=== PATIENT | female | born 1940 | race Caucasian/White ===

== ENCOUNTER 2017-12-31 15:09 | Emergency (ER) | payer MEDICARE, BC ==
[2017-12-31 16:00] VITALS: BP 138/68
--- NOTE | 2017-12-31 16:30 | UC ---
Cardiac HPI - HPI Summary HPI Summary: Pt c/o right chest/rib pain along bra line under right breast. Pt denies injury or trauma to area. Denies skin rash, pain is intermittent and worsens with deep breaths, coughing and laughing. Pt has history of colon cancer - History of Current Complaint Hx Obtained From: Patient Hx Last Menstrual Period: N/A Onset/Duration: Sudden Onset, Lasting Days, Still Present Timing: Intermittent Episodes Lasting: Initial Severity: Mild Current Severity: None Pain Intensity: 0 Chest Pain Location: Right Anterior Aggravating Factor(s): Deep Breaths Alleviating Factor(s): Rest, Position, Spontaneous Resolution Associated Signs & Symptoms: Positive: Negative - Risk Factors Pulmonary Embolism Risk Factors: Malignancy - history of colon cancer Cardiac Risk Factors: Negative Atrial Fibrillation: Negative TAD Risk Factors: Negative <Steph Samson NP - Last Filed: 12/31/17 16:35> <Katrin Salgado - Last Filed: 12/31/17 16:44> - History of Current Complaint Chief Complaint: UCUpperExtremity Stated Complaint: RT SIDE PAIN - RIB AREA Time Seen by Provider: 12/31/17 16:07 - Allergy/Home Medications Allergies/Adverse Reactions: Allergies Allergy/AdvReac Type Severity Reaction Status Date / Time MS Levofloxacin Allergy Severe NIGHTMARES Verified 12/25/16 21:18 [From Levaquin] MS CI Pigment Blue 63 Allergy Intermediate Diarrhea Verified 12/25/16 21:18 [From Dexilant] MS Dexlansoprazole Allergy Intermediate Diarrhea Verified 12/25/16 21:18 [From Dexilant] MS Meloxicam [From Mobic] Allergy Intermediate Blisters Verified 12/25/16 21:18 MS Metronidazole Allergy Intermediate Hives Verified 12/25/16 21:18 [From Flagyl] MS Sulfa Antibiotics Allergy Intermediate Rash Verified 12/25/16 21:18 [Sulfa Antibiotics] Home Medications: Home Medications Fluticas/Salmet 115/21 HFA(NF) [Advair HFA 115/21 (NF)] 2 puff INH BID 12/31/17 [History Confirmed 12/31/17] Solifenacin Succinate [Vesicare] 12.5 mg PO BEDTIME 12/31/17 [History Confirmed 12/31/17] PMH/Surg Hx/FS Hx/Imm Hx Previously Healthy: Yes Respiratory History: COPD - Surgical History Surgical History: Yes Surgery Procedure, Year, and Place: BLADDER REPAIR WITH MESH , BACK SURGERY, THUMB SURGERY, GALL BLADDER, , HYSTERECTOMY, SINUS SURGERY-TWICE - Family History Known Family History: Positive: Cardiac Disease, Hypertension - Social History Occupation: Retired Lives: With Family Alcohol Use: None Substance Use Type: None Smoking Status (MU): Never Smoked Tobacco Have You Smoked in the Last Year: No - Immunization History Most Recent Influenza Vaccination: FALL 2014 Most Recent Tetanus Shot: 06/13/12 <Steph Samson NP - Last Filed: 12/31/17 16:35> Review of Systems Constitutional: Negative Skin: Negative Eyes: Negative ENT: Negative Respiratory: Negative Cardiovascular: Chest Pain Gastrointestinal: Negative Genitourinary: Negative Motor: Negative Neurovascular: Negative Musculoskeletal: Arthralgia Neurological: Negative Psychological: Negative Is Patient Immunocompromised?: No All Other Systems Reviewed And Are Negative: Yes <Steph Samson NP - Last Filed: 12/31/17 16:35> Physical Exam Triage Information Reviewed: Yes Appearance: Well-Appearing Vital Signs: Initial Vital Signs Temp 98.9 F 12/31/17 15:52 Pulse 74 12/31/17 15:52 Resp 16 12/31/17 15:52 BP 138/68 12/31/17 15:52 Pulse Ox 100 12/31/17 15:52 Vital Signs Reviewed: Yes Eye Exam: Normal ENT: Positive: Hearing grossly normal Neck exam: Normal Respiratory: Positive: No respiratory distress Cardiovascular Exam: Normal Musculoskeletal: Positive: Other: - reproducible pain right anterior ribs, 8-9, Neurological Exam: Normal Psychological Exam: Normal Skin Exam: Normal <Steph Samson NP - Last Filed: 12/31/17 16:35> Vital Signs: Initial Vital Signs Temp 98.9 F 12/31/17 15:52 Pulse 74 12/31/17 15:52 Resp 16 12/31/17 15:52 BP 138/68 12/31/17 15:52 Pulse Ox 100 12/31/17 15:52 <Katrin Salgado - Last Filed: 12/31/17 16:44> Diagnostics - Radiology No standard instances Radiology Interpretation Completed By: Radiologist - Other: None IMPRESSION: NO ACTIVE DISEASE. <Steph Samson NP - Last Filed: 12/31/17 16:35> - Differential Diagnoses - Chest Pain Differential Diagnosis/HQI/PQRI: Pulmonary Edema - Clinical Impression Provider Diagnoses: costochondritis <Steph Samson NP - Last Filed: 12/31/17 16:35> Discharge - Sign-Out/Discharge Documenting (check all that apply): Discharge/Admit/Transfer - Billing Disposition and Condition Condition: STABLE <Steph Samson NP - Last Filed: 12/31/17 16:35> - Billing Disposition and Condition Condition: STABLE <Katrin Salgado - Last Filed: 12/31/17 16:44> - Discharge Plan Condition: Stable Patient Education Materials: Chest Wall Pain (ED) Referrals: Unique Delcid PA [Primary Care Provider] - If Needed Attestation Statement User Type: Provider - I was available for consult. This patient was seen by the FREDA. The patient was not presented to, seen by, or examined by me. -Shawn <Katrin Salgado - Last Filed: 12/31/17 16:44>
--- NOTE | 2017-12-31 16:33 | RAD ---
INDICATION: Chest pain COMPARISON: December 27, 2016 TECHNIQUE: PA and lateral dual-energy views were obtained. FINDINGS: Bones/Soft Tissues: There are no acute bony findings. There is a scoliotic deformity Cardiomediastinal: The cardiomediastinal silhouette is normal. Lungs: There are no infiltrates. There is mild hyperinflation. Pleura: There are no pleural effusions. There is partial eventration of the right hemidiaphragm. Other: None IMPRESSION: NO ACTIVE DISEASE.
--- NOTE | 2018-01-21 08:18 | UC ---
Cardiac HPI - HPI Summary HPI Summary: Pt c/o right chest/rib pain along bra line under right breast. Pt denies injury or trauma to area. Denies skin rash, pain is intermittent and worsens with deep breaths, coughing and laughing. Pt has history of colon cancer - History of Current Complaint Hx Obtained From: Patient Hx Last Menstrual Period: N/A Onset/Duration: Sudden Onset, Lasting Days, Still Present Timing: Intermittent Episodes Lasting: Initial Severity: Mild Current Severity: None Pain Intensity: 0 Chest Pain Location: Right Anterior Aggravating Factor(s): Deep Breaths Alleviating Factor(s): Rest, Position, Spontaneous Resolution Associated Signs & Symptoms: Positive: Negative - Risk Factors Pulmonary Embolism Risk Factors: Malignancy - history of colon cancer Cardiac Risk Factors: Negative Atrial Fibrillation: Negative TAD Risk Factors: Negative <Steph Samson NP - Last Filed: 01/21/18 08:18> <Katrin Salgado - Last Filed: 01/21/18 13:41> - History of Current Complaint Chief Complaint: UCUpperExtremity Stated Complaint: RT SIDE PAIN - RIB AREA Time Seen by Provider: 12/31/17 16:07 - Allergy/Home Medications Allergies/Adverse Reactions: Allergies Allergy/AdvReac Type Severity Reaction Status Date / Time dexlansoprazole Allergy Diarrhea Verified 12/31/17 16:47 [From Dexilant] levofloxacin [From Levaquin] Allergy Hallucinati Verified 12/31/17 16:47 ons meloxicam [From Mobic] Allergy See Comment Verified 12/31/17 16:47 metronidazole [From Flagyl] Allergy Hives Verified 12/31/17 16:47 Sulfa (Sulfonamide Allergy Rash Verified 12/31/17 16:47 Antibiotics) Home Medications: Home Medications Fluticas/Salmet 115/21 HFA(NF) [Advair HFA 115/21 (NF)] 2 puff INH BID 12/31/17 [History Confirmed 12/31/17] Solifenacin Succinate [Vesicare] 12.5 mg PO BEDTIME 12/31/17 [History Confirmed 12/31/17] PMH/Surg Hx/FS Hx/Imm Hx Previously Healthy: Yes Respiratory History: COPD - Surgical History Surgical History: Yes Surgery Procedure, Year, and Place: BLADDER REPAIR WITH MESH , BACK SURGERY, THUMB SURGERY, GALL BLADDER, , HYSTERECTOMY, SINUS SURGERY-TWICE - Family History Known Family History: Positive: Cardiac Disease, Hypertension - Social History Occupation: Retired Lives: With Family Alcohol Use: None Substance Use Type: None Smoking Status (MU): Never Smoked Tobacco Have You Smoked in the Last Year: No - Immunization History Most Recent Influenza Vaccination: FALL 2014 Most Recent Tetanus Shot: 06/13/12 <Steph Samson NP Last Filed: 01/21/18 08:18> Review of Systems Constitutional: Negative Skin: Negative Eyes: Negative ENT: Negative Respiratory: Negative Cardiovascular: Chest Pain Gastrointestinal: Negative Genitourinary: Negative Motor: Negative Neurovascular: Negative Musculoskeletal: Arthralgia Neurological: Negative Psychological: Negative All Other Systems Reviewed And Are Negative: Yes <Steph Samson NP - Last Filed: 01/21/18 08:18> Physical Exam Triage Information Reviewed: Yes Appearance: Well-Appearing Vital Signs: Initial Vital Signs Temp 98.9 F 12/31/17 15:52 Pulse 74 12/31/17 15:52 Resp 16 12/31/17 15:52 BP 138/68 12/31/17 15:52 Pulse Ox 100 12/31/17 15:52 Vital Signs Reviewed: Yes Eye Exam: Normal Neck exam: Normal Respiratory: Positive: No respiratory distress Cardiovascular Exam: Normal Musculoskeletal: Positive: Other: - reproducible pain right anterior ribs, 8-9, Neurological Exam: Normal Psychological Exam: Normal Skin Exam: Normal <Steph Samson NP - Last Filed: 01/21/18 08:18> Vital Signs: Initial Vital Signs Temp 98.9 F 12/31/17 15:52 Pulse 74 12/31/17 15:52 Resp 16 12/31/17 15:52 BP 138/68 12/31/17 15:52 Pulse Ox 100 12/31/17 15:52 <Katrin Salgado - Last Filed: 01/21/18 13:41> Diagnostics - Radiology No standard instances Radiology Interpretation Completed By: Radiologist - Other: None IMPRESSION: NO ACTIVE DISEASE. <Steph Samson NP Last Filed: 01/21/18 08:18> - Differential Diagnoses - Chest Pain Differential Diagnosis/HQI/PQRI: Pulmonary Edema - Clinical Impression Provider Diagnoses: rib pain <Steph Samson NP - Last Filed: 01/21/18 08:18> Discharge - Sign-Out/Discharge Documenting (check all that apply): Discharge/Admit/Transfer - Billing Disposition and Condition Condition: STABLE Disposition: HOME <Steph Samson NP - Last Filed: 01/21/18 08:18> - Billing Disposition and Condition Condition: STABLE Disposition: Home <Katrin Salgado - Last Filed: 01/21/18 13:41> - Discharge Plan Condition: Stable Disposition: HOME Patient Education Materials: Chest Wall Pain (ED) Referrals: Unique Delcid PA [Primary Care Provider] - If Needed Attestation Statement User Type: Provider - I was available for consult. This patient was seen by the FREDA. The patient was not presented to, seen by, or examined by me. -Shawn <Katrin Salgado - Last Filed: 01/21/18 13:41>
== END 2017-12-31 16:44 | disposition home or self-care (01) ==
LOC: UCCORT 15:09
DX: M94.0 Chondrocostal junction syndrome [Tietze] (principal)
CPT/HCPCS: 71046; 99212; G0463

== ENCOUNTER 2019-04-24 12:56 | Emergency (ER) | payer MEDICARE, BC ==
--- OUTSIDE RECORDS SUMMARY | 2019-04-24 13:07 | XMS REPORT | Continuity of Care Document ---
:1940 External Reference #:[id number] Author Name Wing Davis MD Address [address], [address] [place] [address] Problems Active Problems Provider Date Seizure disorder Wing Davis MD Onset: 08/31/2016 Asthma Wing Davis MD Onset: 09/04/2016 Lumbar radiculopathy Wing Davis MD Onset: 09/04/2016 Note: Post laminectomy in 2006 Social History Type Date Description Comments Sex Unknown ETOH Use Denies alcohol use Tobacco Use Start: Unknown Patient has never smoked Recreational Drug Use Never Used Drugs Allergies, Adverse Reactions, Alerts Active Allergies Reaction Severity Comments Date Flagyl 02/27/2017 Sulfa Antibiotics 02/27/2017 Levaquin 02/27/2017 Dexilant 02/27/2017 Mobic 04/30/2017 Medications Active Medications SIG Qnty Indications Ordering Provider Date Multi-Day 1 by mouth every Wing Davis, 04/22/2019 Tablets day Dilantin 2 by mouth every 180caps R56.9 Wing Davis, 08/31/2016 100mg Capsules AT bedtime Montelukast Sodium 1 by mouth every 30tabs Wing Davis, 08/31/2016 10mg day Tablets Claritin take 1 capsule 30caps Wing Davis, 08/31/2016 10mg Capsules by mouth daily for allergy Align 1 per day 30caps Wing Davis, 08/31/2016 4mg Capsules Vitamin D 1 by mouth every 90tabs Wing Davis, 08/31/2016 1000Unit day Tablets Calcium 500 1 by mouth bid Wing Davis, 08/31/2016 day [id number]-mg-Unit Tablets Iron 1 by mouth every 30tabs Wing Davis, 08/31/2016 325(65Fe) mg day Tablets Clopidogrel Bisulfate 1 tab daily Clinton, Unique A, M.D. 75mg Tablets Famotidine 1 tab daily Clinton, Unique 20mg Tablets A, M.D. Vitamin C 1 by mouth every Unknown 1000mg day Tablets Advair Diskus inhale one time Unknown by mouth twice 100-50mcg/Dose per day Aerosol Immunizations Description No Information Available Vital Signs Date Vital Result Comment 04/22/2019 3:06pm BP Systolic 106 mmHg BP Diastolic 65 mmHg Heart Rate 85 /min Body Temperature 97.5 F Body Temperature 36.4 C Respiratory Rate 16 /min 10/23/2017 2:34pm Weight 122.00 lb Results Description No Information Available Procedures Description No Information Available Medical Devices Description No Information Available Encounters Type Date Location Provider Dx Diagnosis Office Visit 04/22/2019 [facility] Neurology Wing Davis, R56.9 Unspecified 2:40p convulsions R26.9 Unspecified abnormalities of gait and mobility Assessments Date Code Description Provider 04/22/2019 R56.9 Unspecified convulsions Wing Davis MD 04/22/2019 R26.9 Unspecified abnormalities of gait and mobility Wing Meyer MD Plan of Treatment Future Appointment(s):05/04/2020 12:40 pm - Wing Davis MD at [facility] [id number] - Wing Davis MDR56.9 Unspecified convulsionsComments: We will check a Dilantin [id number] Unspecified abnormalities of gait and mobilityComments:See above Functional Status Description No Information Available Mental Status Description No Information Available Referrals Description No Information Available
[2019-04-24 13:16] VITALS: BP 143/59
--- NOTE | 2019-04-24 14:04 | UC ---
Upper Extremity HPI - HPI Summary HPI Summary: 5 day history of left sided pain, mostly in the left mid axillary line, occasionally associated with movement, relieved by rest, heat and acetaminophen. Improved yesterday, but returned today and she comes for assessment. No hx of trauma, no hx of fractures. She has hx of CA colon, and has been on dilantin for about 10 years. States not osteoporotic, but she appears frail with significant kyphosis. No cough, shortness of breath, nausea, diaphoresis. - History of Current Complaint Chief Complaint: UCGeneralIllness Stated Complaint: LEFT SIDE PAIN Time Seen by Provider: 04/24/19 13:52 Hx Obtained From: Patient Hx Last Menstrual Period: N/A Onset/Duration: Sudden Onset, Lasting Days - 5 Severity Initially: Mild Severity Currently: Mild Pain Intensity: 4 Location Of Pain: Is Discrete @ - lateral left rib cage Character: Aching Aggravating Factor(s): Movement, Lifting Alleviating Factor(s): Heat, OTC Meds, Rest Associated Signs And Symptoms: Positive: Negative Related History: Dominant Hand Right - Risk Factors Non-Orthopedic Risk Factor: Negative DVT Risk Factors: Negative Septic Arthritis Risk Factor: Negative - Allergies/Home Medications Allergies/Adverse Reactions: Allergies Allergy/AdvReac Type Severity Reaction Status Date / Time dexlansoprazole Allergy Diarrhea Verified 04/24/19 13:16 [From Dexilant] levofloxacin [From Levaquin] Allergy Hallucinati Verified 04/24/19 13:16 ons meloxicam [From Mobic] Allergy See Comment Verified 04/24/19 13:16 metronidazole [From Flagyl] Allergy Hives Verified 04/24/19 13:16 Sulfa (Sulfonamide Allergy Rash Verified 04/24/19 13:16 Antibiotics) Home Medications: Home Medications Cetirizine* [ZyrTEC 10 MG TAB*] 1 tab PO DAILY 04/24/19 [History Confirmed 04/24] PMH/Surg Hx/FS Hx/Imm Hx GI/ History: Gastroesophageal Reflux Neurological History: TIA - x 2 in the past, most recent 2017, Seizures - approximately 10 years. Cancer History: Colorectal Cancer - Surgical History Surgical History: Yes Surgery Procedure, Year, and Place: BLADDER REPAIR WITH MESH , BACK SURGERY, THUMB SURGERY, GALL BLADDER, , HYSTERECTOMY, SINUS SURGERY-TWICE, partial colectomy - Family History Known Family History: Positive: Cardiac Disease, Hypertension - Social History Lives: Alone - 2017 Alcohol Use: None Substance Use Type: None Smoking Status (MU): Never Smoked Tobacco Have You Smoked in the Last Year: No - Immunization History Most Recent Influenza Vaccination: FALL 2014 Most Recent Tetanus Shot: 06/13/12 Review of Systems All Other Systems Reviewed And Are Negative: Yes Constitutional: Positive: Fatigue. Negative: Fever, Chills Skin: Positive: Negative Eyes: Positive: Negative ENT: Positive: Negative Respiratory: Negative: Shortness Of Breath, Cough Cardiovascular: Positive: Chest Pain Gastrointestinal: Negative: Abdominal Pain, Vomiting, Diarrhea, Nausea Genitourinary: Positive: Negative Motor: Positive: Decreased ROM Musculoskeletal: Positive: Negative Neurological: Positive: Other - hx of TIA's, no recent seizures Is Patient Immunocompromised?: No Physical Exam Triage Information Reviewed: Yes Appearance: Other: - frail elderly woman, kyphotic chest wall Vital Signs: Initial Vital Signs Temp 97.9 F 04/24/19 13:09 Pulse 71 04/24/19 13:09 Resp 16 04/24/19 13:09 BP 143/59 04/24/19 13:09 Pulse Ox 100 04/24/19 13:09 Eye Exam: Normal ENT: Positive: Pharynx normal Respiratory Exam: Other - tenderness ribs 6-7 in anterior axillary line. Respiratory: Positive: Lungs clear, Normal breath sounds, No respiratory distress Cardiovascular: Positive: RRR, No Murmur Musculoskeletal Exam: Other - full rom in the left arm, no pain with abduction or internal rotation. Neurological: Positive: Alert, Muscle Tone Normal Psychological Exam: Normal Skin Exam: Normal Diagnostics - Radiology No standard instances Radiology Interpretation Completed By: ED Physician Summary of Radiographic Findings: no acute findings. Normal chest. Upper Extremity Course/Dx - Course Course Of Treatment: continue acetaminophen and heat for relief of pain of msk origin. - Differential Dx/Diagnosis Differential Diagnosis/HQI/PQRI: Contusion, Strain, Sprain Provider Diagnosis: Chest wall pain Discharge ED - Sign-Out/Discharge Documenting (check all that apply): Patient Departure All imaging exams completed and their final reports reviewed: No - Discharge Plan Condition: Stable Disposition: HOME Patient Education Materials: Chest Wall Pain (ED) Referrals: Unique Delcid PA [Primary Care Provider] - Additional Instructions: As discussed, the pain is conssitent with a muxlce strain, and could take several weeks to heal. Continue use of heat and actaminophen, and follow up with Dr. Delcid if pain increases or persists for longer than a few more weeks. Avoid heavy lifting and carrying. - Billing Disposition and Condition Condition: STABLE Disposition: Home
--- NOTE | 2019-04-25 12:43 | ED ---
Progress - Progress Note Progress Note: final xray read reviewed: negative Course/Dx - Diagnoses Provider Diagnoses: Chest wall pain Discharge ED - Sign-Out/Discharge Documenting (check all that apply): Patient Departure All imaging exams completed and their final reports reviewed: Yes - Discharge Plan Condition: Stable Disposition: HOME Patient Education Materials: Chest Wall Pain (ED) Referrals: Unique Delcid PA [Primary Care Provider] - Additional Instructions: As discussed, the pain is conssitent with a muxlce strain, and could take several weeks to heal. Continue use of heat and actaminophen, and follow up with Dr. Delcid if pain increases or persists for longer than a few more weeks. Avoid heavy lifting and carrying. - Billing Disposition and Condition Condition: STABLE Disposition: Home
== END 2019-04-24 14:57 | disposition home or self-care (01) ==
LOC: UCCORT 12:56
DX: R07.89 Other chest pain (principal); Z85.038 Personal history of other malignant neoplasm of large intestine; Z86.73 Personal history of transient ischemic attack (TIA), and cerebral infarction without residual deficits
CPT/HCPCS: 99212; G0463

== ENCOUNTER 2019-08-25 11:33 | Emergency (ER) | payer MEDICARE, BC ==
--- OUTSIDE RECORDS SUMMARY | 2019-08-25 12:59 | XMS REPORT | Continuity of Care Document ---
:1940 External Reference #:[id number] Author Name CRISTEL Anrde (transmitted by agent of provider Sally Gauthier) Address [address] [place] [address] Care Team Providers Name Role Phone Unique Delcid RPA - Medical Care Team Information Datacap Developer [phone] Problems Active Problems Provider Date Asthma CRISTEL Andre Onset: 11/04/2018 Note: cough variant Gastroesophageal reflux disease CRISTEL Arteaga Onset: 01/01/2019 Allergic rhinitis CRISTEL Arteaga Onset: 01/01/2019 History of malignant neoplasm of colon CRISTEL Arteaga Onset: 01/01/2019 H/O: TIA CRISTEL Arteaga Onset: 01/01/2019 Note: ostium secundum ASD, 2013 Seizure CRISTEL Arteaga Onset: 01/01/2019 Constipation CRISTEL Andre Onset: 02/07/2019 REM sleep behavior disorder CRISTEL Andre Onset: 02/07/2019 Note: benzodiazapine q Degenerative joint disease involving multiple CRISTEL Andre Onset: joints Note: cervical/lumbar spine, CMC joint of thumb Vitamin D deficiency CRISTEL Andre Onset: 02/07/2019 Chronic laryngitis CRISTEL Andre Onset: 02/07/2019 Note: reflux Diverticular disease of colon CRISTEL Andre Onset: 02/07/2019 Premature atrial contraction CRISTEL Andre Onset: 02/07/2019 Note: and brief run of AT on holter 05/2017 Rui hematuria CRISTEL Andre Onset: 02/07/2019 Note: thought to be due to exposed vaginal mesh 2016 Urge incontinence of urine CRISTEL Andre Onset: 02/07/2019 Social History Type Date Description Comments Sex Unknown ETOH Use Rarely consumes alcohol Tobacco Use Start: Unknown Patient has never smoked Smoking Status Reviewed: 06/30/19 Patient has never smoked Allergies, Adverse Reactions, Alerts Active Allergies Reaction Severity Comments Date Sulfa Antibiotics 11/06/2018 Metronidazole 11/06/2018 Meloxicam 11/06/2018 Levofloxacin 11/06/2018 Dexlansoprazole 11/06/2018 Flagyl 11/06/2018 Medications Active Medications SIG Qnty Indications Ordering Date Provider Fluticasone 2 sprays to each 16gm [address] 06/30/2019 Propionate nare every day MD Jailene 50mcg/Act Suspension Loratadine 1 by mouth every day 30tabs [address] 06/30/2019 10mg for cough/congestion MD Jailene Tablets Iron 65 mg twice a week. 30tabs [place] 02/25/2019 90(18Fe) mg MD Jailene Tablets Probiotic 1 by mouth every day 30caps Fabien 02/25/2019 Capsules MD Jailene Shingrix for intramuscular 1units Fabien 02/25/2019 50mcg/0.5ML use, repeat in 2-6 MD Jailene Suspension Rec months Fluocinonide thin layer twice a 60gm Fabien 11/08/2018 0.05% day to itchy areas MD Jailene Cream on calf and arm as needed Vitamin C 1 by mouth daily Fabien 11/06/2018 1000mg MD Jailene Tablets Calcium 1000 + D 1 by mouth bid with 30tabs [place] 11/06/2018 food MD Jailene [id number] Tablets Montelukast Sodium 1 by mouth every day 90tabs [place] 11/04/2018 MD Jailene 10mg Tablets Cetirizine HCL 1 by mouth every day 90tabs [place] 10mg MD Jailene Tablets Famotidine 1 tab by mouth daily 90tabs Fabien 20mg MD Jailene Tablets Advair HFA 1-2 inhalations 36gm Fabien every 12 hours MD Jailene 230-21mcg/Act Aerosol Alprazolam 1/2 - 1 tab by mouth 90tabs [place] 0.25mg every night at MD Jailene Tablets bedtime ...:::...code c Phenytoin Sodium 2 caps by mouth at Unknown Extended bedtime per 100mg neurology Capsules Clopidogrel 1 tab by mouth every 90tabs Fabien Bisulfate day MD Jailene 75mg Tablets History Medications Amoxicillin/Clavulanate 1 by mouth 20tabs J01.90 Fabien 06/04/2019 - Potassium twice a MD Jailene 06/30/2019 875-125mg Tablets day Immunizations CPT Code Status Date Vaccine Lot # [id number] Given 06/30/2019 Fluzone High Dose Hi [id number] 86366 Given 06/06/2018 Influenza Virus Vaccine, Quadrivalent, Split, Preservative Free 95327 Given 10/06/2016 Pneumococcal Conjugate Vaccine 13 Valent For Intramuscular Use 38252 Given 06/13/2012 Tdap - Tetanus/Diptheria/Acellular Pertussis 44840 Given 12/19/2007 Varicella (Chicken Pox) Immunization 52806 Given 05/28/2007 Influenza Virus 3Yrs & Over 59102 Given 06/27/2005 Pneumococcal Conjugate Vaccine 13 Valent For Intramuscular Use 61727 Given 04/24/1995 Pneumococcal Conjugate Vaccine 13 Valent For Intramuscular Use Vital Signs Date Vital Result Comment 06/30/2019 1:09pm Height 63.5 inches 5'3.50" Weight 123.31 lb Heart Rate 82 /min BP Systolic Sitting 118 mmHg BP Diastolic Sitting 62 mmHg Body Temperature 97.3 F O2 % BldC Oximetry 92 % BMI (Body Mass Index) 21.5 kg/m2 06/04/2019 9:39am Weight 123.00 lb BP Systolic 96 mmHg BP Diastolic 48 mmHg Body Temperature 97.0 F Results Test Acquired Date Facility Test Result H/L Range Note Urine Culture And 02/25/2019 [facility] Urine SEE RESULT 1 , [address] Culture BELOW [place] [phone] [phone] 1 [id number] 2 SEE RESULT BELOW Name: MINDY CARRANZA : [address]: Unique FAM Acct: [id number] Unit: [id number] AGE: 78 Location: [facility] Re02/25/19 SEX: F Status: REG REF SPEC: [id number] SILVIA: 02/25/19-[address]: Unique FAM REQ: [id number] RECD: 02/25/19 STATUS: COMP _ SOURCE: URINE SPDESC: ORDERED: Urine Culture COMMENTS: [id number] Urine Source: Random Procedure Result Reported Site Urine Culture Final 02/26/19- 1204 ML No Growth (<1,000 CFU/mL) * ML - Main Lab . END OF REPORT DEPARTMENT OF PATHOLOGY, [address] [place] [address] Tremayne Hays M.D. Director [facility] # [id number] Procedures Date Code Description Status 11/25/2018 [id number] Diabetic Foot Exam Completed 04/15/2018 [id number] Mammogram Completed 05/20/2017 [id number] Colonoscopy Completed 07/08/2015 [id number] Diabetic Retinal Eye Exam Completed Medical Devices Description No Information Available Encounters Type Date Location Provider Dx Diagnosis Office Visit 06/04/2019 [facility] Fabien J01.90 Acute sinusitis, 9:30a MD Jailene unspecified Office Visit 02/25/2019 [facility] Unique G47.52 REM sleep behavior 10:30a CRISTEL Delcid disorder R82.90 Unspecified abnormal findings in urine G40.909 Epilepsy, unsp, not intractable, without status epilepticus Office Visit 01/01/2019 1:45p [facility] Primary CRISTEL Arteaga I83.11 Varicose veins of Care right lower extremity with inflammation Assessments Date Code Description Provider 06/30/2019 R05 Cough CRISTEL Andre 06/30/2019 Z86.73 Personal history of transient ischemic CRISTEL Andre attack (TIA), and cerebral infarction without residual deficits 06/30/2019 Z23 Encounter for immunization CRISTEL Andre 06/04/2019 J01.90 Acute sinusitis, unspecified Fabien Dent MD 02/25/2019 G47.52 REM sleep behavior disorder CRISTEL Andre 02/25/2019 R82.90 Unspecified abnormal findings in urine CRISTEL Andre 02/25/2019 G40.909 Epilepsy, unspecified, not intractable, CRISTEL Andre without status epile 01/01/2019 I83.11 Varicose veins of right lower extremity CRISTEL Arteaga with inflammation Plan of Treatment Future Appointment(s):12/08/2019 1:00 pm - CRISTEL Andre at [facility]12/25/2019 11:30 am - Minerva Guerrero MD at [facility] Dermatology AT [id number]/30 - Unique Delcid PAR05 CoughNew Medication:Fluticasone Propionate 50 mcg/Act - 2 sprays to each nare every dayLoratadine 10 mg - 1 by mouth every day for cough/congestionComments:May switch to another antihistamine such as ThibwuizT05.73 Personal history of transient ischemic attack (TIA), and cerebral infarction without residualdeficitsNew Labs:CBC Auto Diff, Ordered: 07/08Comp Metabolic Panel, Ordered: 06/30/19Z23 Encounter for immunizationComments:Seasonal flu vaccine administered today. Functional Status Functional Condition Comment Date Status Glasses Active Mental Status Description No Information Available Referrals Description No Information Available
[2019-08-25 13:09] VITALS: BP 129/64
[2019-08-25 13:42] LABS: Influenza A Molecular NEGATIVE (Negative); Influenza B Molecular NEGATIVE (Negative)
--- NOTE | 2019-08-25 13:48 | UC ---
Throat Pain/Nasal [place] HPI - HPI Summary HPI Summary: 78-year-old female with runny nose and head congestion for 3 days. - History of Current Complaint Chief Complaint: UCRespiratory Stated Complaint: SINUSES Time Seen by Provider: 08/25/19 13:00 Hx Obtained From: Patient Hx Last Menstrual Period: N/A ?: No Onset/Duration: Gradual Onset Severity: Mild Pain Intensity: 3 Cough: None Associated Signs & Symptoms: Positive: Sinus Discomfort, Nasal Discharge - Allergies/Home Medications Allergies/Adverse Reactions: Allergies Allergy/AdvReac Type Severity Reaction Status Date / Time dexlansoprazole Allergy Diarrhea Verified 08/25/19 13:04 [From Dexilant] levofloxacin [From Levaquin] Allergy Hallucinati Verified 08/25/19 13:04 ons meloxicam [From Mobic] Allergy See Comment Verified 08/25/19 13:04 metronidazole [From Flagyl] Allergy Hives Verified 08/25/19 13:04 Sulfa (Sulfonamide Allergy Rash Verified 08/25/19 13:04 Antibiotics) Home Medications: Home Medications Calcium Carbonate CHEW TAB* [Tums*] 500 mg PO BID 08/25/19 [History Confirmed ] Famotidine TAB* [Pepcid 20 MG TAB*] 20 mg PO DAILY 08/25/19 [History Confirmed 08/25/19] Vitamin THERAPEUTIC TAB* [Theragran TAB*] 1 tab PO DAILY 08/25/19 [History Confirmed 08/25/19] PMH/Surg Hx/FS Hx/Imm Hx Previously Healthy: Yes Cancer History: Colorectal Cancer - Surgical History Surgical History: Yes Surgery Procedure, Year, and Place: BLADDER REPAIR WITH MESH , BACK SURGERY, THUMB SURGERY, GALL BLADDER, , HYSTERECTOMY, SINUS SURGERY-TWICE, partial colectomy - Family History Known Family History: Positive: Cardiac Disease, Hypertension - Social History Occupation: Retired Alcohol Use: None Substance Use Type: None Smoking Status (MU): Never Smoked Tobacco Have You Smoked in the Last Year: No - Immunization History Most Recent Influenza Vaccination: FALL 2014 Most Recent Tetanus Shot: 04/28/16 Review of Systems All Other Systems Reviewed And Are Negative: Yes ENT: Positive: Nasal Discharge, Sinus Congestion Is Patient Immunocompromised?: No Physical Exam Triage Information Reviewed: Yes Appearance: Well-Appearing, No Pain Distress, Well-Nourished Vital Signs: Initial Vital Signs Temp 98.4 F 01/06/20 13:02 Pulse 71 08/25/19 13:02 Resp 16 08/25/19 13:02 BP 129/64 08/25/19 13:02 Pulse Ox 100 08/25/19 13:02 Vital Signs Reviewed: Yes Eyes: Positive: Conjunctiva Clear ENT: Positive: Hearing grossly normal, Pharynx normal, Nasal drainage - Clear nasal coryza, TMs normal, Uvula midline Neck: Positive: Supple, Nontender, No Lymphadenopathy Respiratory: Positive: Lungs clear, Normal breath sounds, No respiratory distress, No accessory muscle use Cardiovascular: Positive: RRR, No Murmur, Pulses Normal, Brisk Capillary Refill Musculoskeletal Exam: Normal Neurological Exam: Normal Psychological Exam: Normal Skin Exam: Normal Throat Pain/Nasal Course/Dx - Course Course Of Treatment: Rapid flu test: Negative Patient is comfortable here. She felt like she had a sinus infection however she is only been sick for 3 days and her nose and sinuses, other than having clear coryza, are normal in appearance. She is to do mostly comfort measures and follow-up with her primary care provider in for 5 days if no improvement. - Differential Dx/Diagnosis Provider Diagnosis: URI (upper respiratory infection) Discharge ED - Sign-Out/Discharge Documenting (check all that apply): Patient Departure All imaging exams completed and their final reports reviewed: No Studies - Discharge Plan Condition: Good Disposition: HOME Patient Education Materials: Upper Respiratory Infection (ED) Referrals: Unique Delcid PA [Primary Care Provider] - Additional Instructions: Increase fluids, follow-up with your primary care provider in 4 or 5 days if no improvement in symptoms. - Billing Disposition and Condition Condition: GOOD Disposition: Home
== END 2019-08-25 13:51 | disposition home or self-care (01) ==
LOC: UCCORT 11:33
DX: J06.9 Acute upper respiratory infection, unspecified (principal); Z85.038 Personal history of other malignant neoplasm of large intestine; Z88.8 Allergy status to other drugs, medicaments and biological substances; Z88.1 Allergy status to other antibiotic agents; Z88.2 Allergy status to sulfonamides
CPT/HCPCS: 99212; G0463